=== PATIENT | female | born 1950 ===

== ENCOUNTER 2022-03-03 08:20 | Outpatient (CLI) | payer OTHER ==
[~2022-03-03 08:20] MED LIST: CRESTOR10 MG PO; MOTRIN800 MG PO; TARKA 2/1801 BOTTLE PO
== END 2022-03-03 08:25 | disposition home or self-care (01) ==
LOC: TOM 08:20
DX: Z12.11 Encounter for screening for malignant neoplasm of colon (principal); K00-K95 Diseases of the digestive system